=== PATIENT | male | born 1935 | race Caucasian/White ===

== ENCOUNTER 2021-11-01 09:45 | Inpatient (IN) | payer MEDICARE, OTHER ==
[~2021-11-01] VITALS: Ht 175.3 cm; Wt 57.2 kg
[2021-11-01] MEDS ORDERED: IV NS 0.9% 1,000 ML BAG IV ONE (10:00)
[2021-11-01 10:21] LABS: BASOPHILS # (AUTO) 0.1 K/uL (0.0-0.2); BASOPHILS % (AUTO) 0.8 % (0.0-2.0); EOSINOPHILS % (AUTO) 2.1 % (0.0-6.0); HEMATOCRIT 47 % (39-51); HEMOGLOBIN 14.9 g/dL (13.5-17.5); LYMPHOCYTES # (AUTO) 1.1 K/uL (0.8-4.8); LYMPHOCYTES % (AUTO) 14.2 % (20.0-44.0); MEAN CORPUSCULAR HGB CONC 32 g/dl (31.0-36.0); MEAN CORPUSCULAR VOLUME 92 fL (80-96); MONOCYTES # (AUTO) 0.6 K/uL (0.1-1.30); MONOCYTES % (AUTO) 7.1 % (2.0-12.0); NEUTROPHILS % (AUTO) 75.8 % (43.0-81.0); PLATELET COUNT (AUTO) 133 K/uL (150-450); RED BLOOD CELL COUNT(AUTO) 5.09 MIL/uL (4.5-6.0); WHITE BLOOD COUNT (AUTO) 7.9 K/uL (4.3-11.0)
--- NOTE | 2021-11-01 10:24 | NUR ---
CLINICAL CYTOGENETICS DIRECTOR AT BEDSIDE FOR XRAY
--- NOTE | 2021-11-01 10:26 | NUR ---
COVID SWAB DONE AND SENT TO LAB
--- NOTE | 2021-11-01 10:27 | NUR ---
URINE COLLECTED AND SENT TO LAB
[2021-11-01] MEDS ORDERED: ACET325T53 PO (10:30)
[2021-11-01] MEDS ORDERED: ATOR20TA PO (10:30)
[2021-11-01] MEDS ORDERED: CALC-883 PO (10:30)
[2021-11-01] MEDS ORDERED: CYAN-51 PO (10:30)
[2021-11-01] MEDS ORDERED: FERR325T23 PO (10:30)
[2021-11-01] MEDS ORDERED: MAGN400T26 PO (10:30)
[2021-11-01] MEDS ORDERED: DILT30TA14 PO (10:30)
[2021-11-01] MEDS ORDERED: VANC500V PO (10:30)
[2021-11-01] MEDS ORDERED: MULT-439 PO (10:30)
[2021-11-01] MEDS ORDERED: PANT40TA49 PO (10:31)
[2021-11-01] MEDS ORDERED: METO100T14 PO (10:31)
[2021-11-01] MEDS ORDERED: APIX2.5T PO (10:34)
[2021-11-01] MEDS ORDERED: LACT1CAP26 PO (10:34)
[2021-11-01] MEDS ORDERED: MAGN400O6 PO (10:34)
[2021-11-01 10:51] LABS: ALANINE AMINOTRANSFERASE 8 U/L (12-78); ALBUMIN 2.5 g/dL (3.4-5.0); ALKALINE PHOSPHATASE 68 U/L (46-116); ASPARTATE AMINOTRANSFERASE 23 U/L (15-37); BILIRUBIN,DIRECT 0.2 mg/dL (0.0-0.2); BILIRUBIN,TOTAL 1.2 mg/dL (0.2-1.0); CALCIUM, SERUM 8.9 mg/dL (8.5-10.1); CARBON DIOXIDE 25 mmol/L (21-32); CHLORIDE 109 mmol/L (98-107); CREATININE 1.1 mg/dL (0.6-1.3); GLUCOSE 88 mg/dL (74-106); POTASSIUM 5.4 mmol/L (3.5-5.1); SODIUM SERUM 143 mmol/L (136-145); UREA NITROGEN, BLOOD 22 mg/dL (7-18)
[2021-11-01 10:57] LABS: BILIRUBIN,URINE MODERATE (NEGATIVE); COLOR,URINE AMBER (YELLOW); LEUKOCYTE ESTERASE ,URINE MODERATE (NEGATIVE); NITRITE, URINE POSITIVE (NEGATIVE); PH,URINE 5.5 (5.0-8.0); PROTEIN,URINE >=300 mg/dl (NEGATIVE); UGLUCOSE NEGATIVE (NEGATIVE)
--- NOTE | 2021-11-01 11:14 | NUR ---
CALLED NURSING SUP FOR M/S BED. UTI
[2021-11-01 11:16] LABS: BACTERIA,URINE Few /HPF (None Seen); SQUAMOUS EPITHELIAL CELL,UR Few /HPF (None Seen); WBC,URINE TOO NUMEROUS TO COUN /HPF (0-3)
[2021-11-01] MEDS ORDERED: CEFTRIAXONE 1GM BAG (ER ONLY) 50 ML IV ONE (11:27)
[2021-11-01] MEDS ORDERED: MORPHINE SULFATE INJ 2 MG/ML DISP.SYRIN IV PRN (11:30)
[2021-11-01] MEDS ORDERED: CEFTRIAXONE 1GM BAG (ER ONLY) 1 GM/50 ML PIGGYBACK IV ONE (11:30)
[2021-11-01] MEDS ORDERED: MAGNESIUM HYDROXIDE 30 ML UDC PO PRN (11:30)
[2021-11-01] MEDS ORDERED: MAG HYDROX/AL HYDROX/SIMETH 30 ML UDC PO PRN (11:30)
[2021-11-01] MEDS ORDERED: ONDANSETRON HCL/PF 4 MG/2 ML VIAL IVP PRN (11:30)
[2021-11-01] MEDS ORDERED: Z GUARD REMEDY 4 OZ OINT TP PRN (11:30)
[2021-11-01] MEDS ORDERED: ACETAMINOPHEN 325 MG TABLET PO PRN (11:30)
[2021-11-01] MEDS ORDERED: PANTOPRAZOLE 40 MG VIAL ONE (12:56)
[2021-11-01] MEDS: IV D5/0.45 NACL 1,000 ML IV PRN ×2 (12:57→14:04)
[2021-11-01] MEDS: PANTOPRAZOLE 40 MG VIAL IV SCH (12:57)
--- NOTE | 2021-11-01 13:17 | NUR ---
REPORT GIVEN TO PATRICIA BENNETT. PT AWAITNG TRANSFER TO FLOOR.
--- NOTE | 2021-11-01 13:27 | NUR ---
TRANSFERRED TO BED 313 IN STABLE CONDITION
--- NOTE | 2021-11-01 14:00 | NUR ---
ADMISSION NOTE Received patient via gurney from ER. Report given by SABRINA Sanchez at 1313. Patient is A/O x1. On room air, breathing evenly and unlabored. No SOB or s/s of distress noted. IV access on LAC #18, IV fluid hooked, D5 1/2 NS,now running at 75 ml/hr. Patient made comfortable. Call light within reach. All belongings accounted for. VS taken and recorded as follows: BP 111/67, HR 64, RR 21, Temp 97.5, SPO2 98% on room air. Skin assessment done, multiple rashes noted and redness on groin and perianal area. Photos taken and placed in chart. Wound consult requested. Patient is DNR, POLST in chart. Code status ordered. Lungs clear on auscultation. Bowel sound present x4. Peter catheter in place, no urine output at this time. Safety precautions in place: bed in low, locked position; siderails up x 2; call light within reach. Will continue to monitor.
--- NOTE | 2021-11-01 15:45 | NUR ---
RN NOTE Received call from Ollie from lab, patient's lactic acid is 3.5. Dr. Augie Villarreal notified, no new orders at this time.
[2021-11-01 16:00] VITALS: BP 116/83
--- NOTE | 2021-11-01 18:49 | NUR ---
MS RN CLOSING NOTE Patient in bed, asleep. A/O x 1. Stable on room air, breathing evenly and unlabored. No SOB or s/s of distress noted. IV access on LAC #18 infusing D5 1/2 NS at 75 ml/hr. Peter catheter in place, no output noted. Patient kept clean and dry. Turned and repositioned, as tolerated. Safety precautions maintained: bed in low, locked position; siderails up x 2; call light within reach. Will endorsed to police shift commander nurse for ISHAN.
--- NOTE | 2021-11-01 19:30 | NUR ---
RN OPENING NOTE PATIENT IN BED, A/O X 1 ORIENTED ONLY TO NAME. PATIENT ON RA, TOLERATING WELL. NO SOB NOTED. PATIENT HAS A LAC 18 G WITH D5 1/2 NS AT 75 ML/HR ONGOING. PATIENT NOT IN ANY APPARENT DISTRESS. SAFETY MEASURES IN PLACE: BED LOCKED AND IN LOWEST POSITION, CALL LIGHT WITHIN REACH, SIDE RAILS UP. WILL MONITOR PATIENT CLOSELY.
[2021-11-01 20:00] VITALS: BP 136/58
--- NOTE | 2021-11-02 07:00 | NUR ---
MS RN OPENING NOTE PATIENT LAYING IN BED, A/O X 1, ORIENTED ONLY TO NAME, TOLERATING WELL ON ROOM AIR WITH NO S/S RESPIRATORY DISTRESS. L AC # 18 IV WITH D5 1/2 NS INFUSING @ 75 ML/HR. SCHOFIELD CATHETER IN PLACE DRAINING CLEAR YELLOW URINE TO GRAVITY. SAFETY MEASURES IN PLACE: BED LOCKED AND IN LOWEST POSITION, CALL LIGHT WITHIN REACH, SIDE RAILS UP. WILL CONTINUE TO MONITOR.
--- NOTE | 2021-11-02 07:06 | NUR ---
RN CLOSING NOTE PATIENT IN BED, A/O X 1 ORIENTED ONLY TO NAME. PATIENT ON RA, TOLERATING WELL. NO SOB NOTED. PATIENT HAS A LAC 18 G WITH D5 1/2 NS AT 75 ML/HR ONGOING. PATIENT NOT IN ANY APPARENT DISTRESS. PATIENT REFUSED BLOOD DRAW AT THIS TIME, FIRE OFFICER WILL COME BACK AT A LATER TIME. SAFETY MEASURES IN PLACE: BED LOCKED AND IN LOWEST POSITION, CALL LIGHT WITHIN REACH, SIDE RAILS UP. ALL NEEDS MET AND ATTENDED. ALL ORDERS CARRIED OUT. WILL ENDORSE TO DAY SHIFT NURSE FOR ISHAN.
[2021-11-02] MEDS: PANTOPRAZOLE 40 MG VIAL IV SCH (08:47)
[2021-11-02 08:52] LABS: BASOPHILS # (AUTO) 0.1 K/uL (0.0-0.2); BASOPHILS % (AUTO) 1.9 % (0.0-2.0); EOSINOPHILS % (AUTO) 2.8 % (0.0-6.0); HEMATOCRIT 43 % (39-51); HEMOGLOBIN 13.5 g/dL (13.5-17.5); LYMPHOCYTES # (AUTO) 1.1 K/uL (0.8-4.8); LYMPHOCYTES % (AUTO) 15.6 % (20.0-44.0); MEAN CORPUSCULAR HGB CONC 32 g/dl (31.0-36.0); MEAN CORPUSCULAR VOLUME 92 fL (80-96); MONOCYTES # (AUTO) 0.6 K/uL (0.1-1.30); MONOCYTES % (AUTO) 7.7 % (2.0-12.0); NEUTROPHILS # (AUTO) 5.2 K/uL (1.8-8.9); PLATELET COUNT (AUTO) 113 K/uL (150-450); RED BLOOD CELL COUNT(AUTO) 4.64 MIL/uL (4.5-6.0); WHITE BLOOD COUNT (AUTO) 7.2 K/uL (4.3-11.0)
[2021-11-02 09:30] LABS: CALCIUM, SERUM 9.1 mg/dL (8.5-10.1); CREATININE 1.2 mg/dL (0.6-1.3); MAGNESIUM 1.7 mg/dL (1.8-2.4); PHOSPHORUS 4.3 mg/dL (2.5-4.9); POTASSIUM 5.9 mmol/L (3.5-5.1)
[2021-11-02] MEDS ORDERED: ALBUTEROL FS 2.5 MG/3 ML VIAL.NEB NEB ONE ×2 (10:30→16:45)
[2021-11-02] MEDS: SODIUM POLYSTYRENE SULFONATE 15 G/60 ML BOTTLE PO ONE ×2 (11:01→11:23)
[2021-11-02] MEDS: CEFTRIAXONE 1 G in IV D5W 50 ML IV SCH (12:11)
[2021-11-02] MEDS ORDERED: MAGNESIUM HYDROXIDE 30 ML UDC PO PRN (13:30)
[2021-11-02] MEDS ORDERED: ACETAMINOPHEN 325 MG TABLET PO PRN (13:30)
[2021-11-02] MEDS: FERROUS SULFATE (325 MG) 325 MG/TAB TABLET PO SCH (17:17)
[2021-11-02] MEDS: APIXABAN 2.5 MG TABLET PO SCH (17:19)
[2021-11-02] MEDS: DILTIAZEM HCL 30 MG TABLET PO SCH (17:32)
[2021-11-02 20:00] VITALS: BP 119/61
--- NOTE | 2021-11-02 20:47 | NUR ---
MS RN OPENING NOTE; RECEIVED PATIENT IN BED, AA/O X 1 CONFUSED,TOLERATING WELL ON ROOM AIR WITH NO SIGN SOB/ RESPIRATORY DISTRESS NOTED. L AC # 18 IV WITH D5 1/2 NS INFUSING @ 75 ML/HR. SCHOFIELD CATHETER IN PLACE DRAINING CLEAR YELLOW URINE TO GRAVITY. SAFETY MEASURES IN PLACE: BED LOCKED AND IN LOWEST POSITION, CALL LIGHT WITHIN REACH, SIDE RAILS UP. WILL CONTINUE TO MONITOR.
[2021-11-02] MEDS: ATORVASTATIN 10 MG TABLET PO SCH (21:32)
[2021-11-02] MEDS: METOPROLOL TARTRATE 50 MG TABLET PO SCH (21:34)
[2021-11-02] MEDS ORDERED: PANTOPRAZOLE 40 MG TABLET.DR PO SCH (22:00)
[2021-11-03] MEDS: DILTIAZEM HCL 30 MG TABLET PO SCH ×5 (00:51→23:48)
[2021-11-03] MEDS: IV D5/0.45 NACL 1,000 ML IV PRN (01:53)
--- NOTE | 2021-11-03 06:40 | NUR ---
MS RN CLOSING NOTE; PATIENT IN BED, AA/O X 1 CONFUSED,TOLERATING WELL ON ROOM AIR WITH NO SIGN SOB/ RESPIRATORY DISTRESS NOTED.DUE MEDS GIVEN ORDER,ALL NEEDS ATTENDED, L AC # 18G WITH D5 1/2 NS INFUSING @ 75 ML/HR. SCHOFIELD CATHETER IN PLACE DRAINING CLEAR YELLOW URINE OUTPUT 750ML.SAFETY MEASURES IN PLACE: BED LOCKED AND IN LOWEST POSITION, CALL LIGHT WITHIN REACH, SIDE RAILS UP. WILL ENDORSED TO NEXT SHIFT.
--- NOTE | 2021-11-03 07:19 | NUR ---
MS RN OPENING NOTE RECEIVED PATIENT IN BED, A/O X 1 CONFUSED,TOLERATING WELL ON ROOM AIR WITH NO SIGN SOB/ RESPIRATORY DISTRESS NOTED. L AC # 18 IV WITH D5 1/2 NS INFUSING @ 75 ML/HR. SCHOFIELD CATHETER IN PLACE DRAINING CLEAR YELLOW URINE TO GRAVITY. SAFETY MEASURES IN PLACE: BED LOCKED AND IN LOWEST POSITION, CALL LIGHT WITHIN REACH, SIDE RAILS UP. WILL CONTINUE TO MONITOR.
[2021-11-03 07:55] LABS: CALCIUM, SERUM 8.3 mg/dL (8.5-10.1); POTASSIUM 4.4 mmol/L (3.5-5.1)
[2021-11-03] MEDS ORDERED: PANTOPRAZOLE 40 MG TABLET.DR PO SCH (08:33)
[2021-11-03] MEDS ORDERED: ENOXAPARIN SODIUM 30 MG/0.3 ML DISP.SYRIN SQ SCH (09:00)
[2021-11-03] MEDS ORDERED: ACIDOPHILUS/BULGARICUS 1 EACH GRAN.PACK PO SCH (09:00)
[2021-11-03] MEDS: MAGNESIUM OXIDE 400 MG TABLET PO SCH (09:51)
[2021-11-03] MEDS: CYANOCOBALAMIN 500 MCG TABLET PO SCH (09:52)
[2021-11-03] MEDS: CALCIUM CARB 600MG /VIT D 1 EACH TABLET PO SCH (09:52)
[2021-11-03] MEDS: PANTOPRAZOLE 40 MG TABLET.DR PO SCH (09:52)
[2021-11-03] MEDS: FERROUS SULFATE (325 MG) 325 MG/TAB TABLET PO SCH ×2 (09:52→17:23)
[2021-11-03] MEDS: MULTIVITAMIN/LUTEIN/MINERALS 1 TAB PO SCH (09:52)
[2021-11-03] MEDS: METOPROLOL TARTRATE 50 MG TABLET PO SCH ×2 (09:53→21:33)
[2021-11-03] MEDS: APIXABAN 2.5 MG TABLET PO SCH ×2 (09:54→17:25)
[2021-11-03 10:12] VITALS: BP 113/72
--- NOTE | 2021-11-03 10:30 | NUR ---
MS RN NOTE SEEN BY DR. PALOMARES
--- NOTE | 2021-11-03 11:02 | NUR ---
MS RN NOTE PATIENT WITH LACTINEX ORDER. VERIFIED WITH PHARMACIST BECAUSE IT IS NOT SHOWING UP IN THE [facility]. PER PHARMACIST, WILL CHECK AND CAN RECHECK AGAIN AFTER A WHILE. LACTINEX PULLED OUT FROM MACHINE. HOWEVER, LACTINEX MOVED FOR TOMORROW. MEDICATION HALF OPENED. MEDICATION DISCARDED INSTEAD.
[2021-11-03] MEDS: CEFTRIAXONE 1 G in IV D5W 50 ML IV SCH (13:26)
[2021-11-03] MEDS: ENSURE ENLIVE 237 ML LIQUID (VANILLA) PO SCH (17:26)
[2021-11-03 18:09] VITALS: BP 135/95
--- NOTE | 2021-11-03 19:00 | NUR ---
MS RN CLOSING NOTE PATIENT IN BED, A/O X 1 CONFUSED,TOLERATING WELL ON ROOM AIR WITH NO SIGN SOB/ RESPIRATORY DISTRESS NOTED. RIGHT FOREARM # 22 IV WITH D5 1/2 NS INFUSING @ 75 ML/HR. SCHOFIELD CATHETER IN PLACE DRAINING CLEAR YELLOW URINE TO GRAVITY. SAFETY MEASURES IN PLACE: BED LOCKED AND IN LOWEST POSITION, CALL LIGHT WITHIN REACH, SIDE RAILS UP. ENDORSED TO NEXT SHIFT FOR CONTINUITY OF CARE.
--- NOTE | 2021-11-03 19:43 | NUR ---
MS RN OPENING NOTE; RECEIVED PATIENT IN BED, AA/O X 1 CONFUSED,TOLERATING WELL ON ROOM AIR WITH NO SIGN SOB/ RESPIRATORY DISTRESS NOTED. R AC 22G WITH D5 1/2 NS INFUSING @ 75 ML/HR. SCHOFIELD CATHETER IN PLACE DRAINING CLEAR YELLOW URINE TO GRAVITY. SAFETY MEASURES IN PLACE: BED LOCKED AND IN LOWEST POSITION, CALL LIGHT WITHIN REACH, SIDE RAILS UP. WILL CONTINUE TO MONITOR.
[2021-11-03 20:00] VITALS: BP 109/78
[2021-11-03] MEDS: ATORVASTATIN 10 MG TABLET PO SCH (21:32)
[2021-11-04] VITALS: BP 117/82
[2021-11-04] MEDS: IV D5/0.45 NACL 1,000 ML IV PRN ×2 (02:51→20:00)
[2021-11-04] MEDS: DILTIAZEM HCL 30 MG TABLET PO SCH ×3 (05:49→17:21)
--- NOTE | 2021-11-04 06:30 | NUR ---
MS RN CLOSING NOTE; PATIENT IN BED, AA/O X 1 CONFUSED,TOLERATING WELL ON ROOM AIR WITH NO SIGN SOB/ RESPIRATORY DISTRESS NOTED.DUE MEDS GIVEN ORDER,ALL NEEDS ATTENDED, IV ACCESS ON RFA 22G WITH D5 1/2 NS INFUSING @ 75 ML/HR. SCHOFIELD CATHETER IN PLACE DRAINING CLEAR YELLOW URINE OUTPUT 200ML.SAFETY MEASURES IN PLACE: BED LOCKED AND IN LOWEST POSITION, CALL LIGHT WITHIN REACH, SIDE RAILS UP. WILL ENDORSED TO NEXT SHIFT.
[2021-11-04 07:03] LABS: BASOPHILS # (AUTO) 0.1 K/uL (0.0-0.2); BASOPHILS % (AUTO) 0.7 % (0.0-2.0); EOSINOPHILS % (AUTO) 4.4 % (0.0-6.0); HEMATOCRIT 41 % (39-51); HEMOGLOBIN 13.2 g/dL (13.5-17.5); LYMPHOCYTES # (AUTO) 0.7 K/uL (0.8-4.8); LYMPHOCYTES % (AUTO) 9.3 % (20.0-44.0); MEAN CORPUSCULAR HGB CONC 33 g/dl (31.0-36.0); MEAN CORPUSCULAR VOLUME 91 fL (80-96); MONOCYTES # (AUTO) 0.4 K/uL (0.1-1.30); MONOCYTES % (AUTO) 5.7 % (2.0-12.0); NEUTROPHILS # (AUTO) 5.8 K/uL (1.8-8.9); NEUTROPHILS % (AUTO) 79.9 % (43.0-81.0); PLATELET COUNT (AUTO) 109 K/uL (150-450); RED BLOOD CELL COUNT(AUTO) 4.48 MIL/uL (4.5-6.0); WHITE BLOOD COUNT (AUTO) 7.3 K/uL (4.3-11.0)
[2021-11-04 07:12] LABS: CALCIUM, SERUM 7.9 mg/dL (8.5-10.1); CARBON DIOXIDE 26 mmol/L (21-32); CHLORIDE 108 mmol/L (98-107); CREATININE 0.9 mg/dL (0.6-1.3); GLUCOSE 129 mg/dL (74-106); POTASSIUM 3.8 mmol/L (3.5-5.1); SODIUM SERUM 142 mmol/L (136-145); UREA NITROGEN, BLOOD 18 mg/dL (7-18)
--- NOTE | 2021-11-04 07:30 | NUR ---
MS RN OPENING NOTE; RECEIVED PATIENT AWAKE IN BED, PATIENT IS A/O X 1 WITH CONFUSION. ON ROOM AIR WITH NO SIGN SOB/ RESPIRATORY DISTRESS NOTED. IV ACCESS ON RFA 22G WITH D5 1/2 NS INFUSING @ 75 ML/HR. SCHOFIELD CATHETER IN PLACE DRAINING CLEAR YELLOW URINE . ALL SAFETY MEASURES IN PLACE: BED LOCKED AND IN LOWEST POSITION, CALL LIGHT AND TABLE WITHIN REACH, SIDE RAILS UP TIMES 2. WILL CONTINUE TO MONITOR.
[2021-11-04 08:00] VITALS: BP 111/79
[2021-11-04] MEDS: CALCIUM CARB 600MG /VIT D 1 EACH TABLET PO SCH (08:59)
[2021-11-04] MEDS: ENSURE ENLIVE 237 ML LIQUID (VANILLA) PO SCH ×2 (08:59→17:20)
[2021-11-04] MEDS: ACIDOPHILUS/BULGARICUS 1 EACH TAB.CHEW PO SCH (09:00)
[2021-11-04] MEDS: METOPROLOL TARTRATE 50 MG TABLET PO SCH ×2 (09:01→21:00)
[2021-11-04] MEDS: APIXABAN 2.5 MG TABLET PO SCH ×2 (09:02→17:22)
[2021-11-04] MEDS: MAGNESIUM OXIDE 400 MG TABLET PO SCH (09:03)
[2021-11-04] MEDS: FERROUS SULFATE (325 MG) 325 MG/TAB TABLET PO SCH ×2 (09:03→17:20)
[2021-11-04] MEDS: MULTIVITAMIN/LUTEIN/MINERALS 1 TAB PO SCH (09:03)
[2021-11-04] MEDS: CYANOCOBALAMIN 500 MCG TABLET PO SCH (09:04)
[2021-11-04] MEDS: PANTOPRAZOLE 40 MG TABLET.DR PO SCH (09:04)
--- NOTE | 2021-11-04 09:06 | NUR ---
WOUND CARE CONSULT: PT PRESENTS WITH SPOTTY RASH TO UPPER BODY, UNKNOWN ETIOLOGY, RED RASH TO PERINEUM, GROIN FOLDS, BUTTOCKS WITH OPEN AREA TO SACRUM, ALL PRESENT ON ADMISSION. DEFER TO PMD FOR UPPER BODY RASH/SKIN CONDITION. RECOMMENDATIONS MADE FOR SKIN PROTECTION AND CARE OF GROIN/BUTTOCKS/PERINEAL RASH. DISCUSSED WITH NURSING STAFF. DR CRONIN CALLED FOR SURGICAL CONSULT. PT TO BE PLACED ON [facility] ISOFLEX LOW AIRSS BED. IN AGREEMENT WITH PLAN OF CARE. Addendum: 11/04/21 at 0908 by BUD FREY WNDNU Amended: Links added.
[2021-11-04] MEDS: CLOTRIMAZOLE/BETAMETASONE DIPROPIONATE 15 GM TUBE TP SCH ×2 (11:48→17:23)
[2021-11-04] MEDS: CEFTRIAXONE 1 G in IV D5W 50 ML IV SCH (12:11)
[2021-11-04 17:23] VITALS: BP 106/66
--- NOTE | 2021-11-04 18:49 | NUR ---
MS RN CLOSING NOTE; RECEIVED PATIENT AWAKE IN BED, PATIENT IS A/O X 1 WITH CONFUSION. ON ROOM AIR WITH NO SIGN SOB/ RESPIRATORY DISTRESS NOTED. IV ACCESS ON RFA 22G WITH D5 1/2 NS INFUSING @ 75 ML/HR. SCHOFIELD CATHETER IN PLACE DRAINING CLEAR YELLOW URINE . ALL SAFETY MEASURES IN PLACE: BED LOCKED AND IN LOWEST POSITION, CALL LIGHT AND TABLE WITHIN REACH, SIDE RAILS UP TIMES 2. ALL DUE MEDS GIVEN ORDERED.WILL ENDORSE FOR ISHAN
--- NOTE | 2021-11-04 19:54 | NUR ---
RN OPENING NOTES RECEIVED PT IN BED, AWAKE. AOx2, ABLE TO MAKE NEEDS KNOWN. ON RA AND TOLERATING WELL. NO SOB NOTED. NO S/SX OF RESPIRATORY DISTRESS NOTED. IV ACCESS IN RFA #22G RUNNING D51/2 NS @ 75 ML/HR. SAFETY PRECAUTIONS IN PLACE: BED IN LOWEST, LOCKED POSITION, SIDERAILS UPx2, AND BRAKES ON. TABLE AND CALL LIGHT WITHIN REACH. ALL NEEDS MET AT THIS TIME.
[2021-11-04 20:00] VITALS: BP 98/71
[2021-11-04] MEDS: ATORVASTATIN 10 MG TABLET PO SCH (21:43)
[2021-11-05] MEDS: DILTIAZEM HCL 30 MG TABLET PO SCH ×3 (00:16→12:21)
[2021-11-05 06:39] LABS: BASOPHILS % (AUTO) 0.5 % (0.0-2.0); EOSINOPHILS % (AUTO) 5.5 % (0.0-6.0); HEMATOCRIT 39 % (39-51); HEMOGLOBIN 12.6 g/dL (13.5-17.5); LYMPHOCYTES # (AUTO) 0.7 K/uL (0.8-4.8); LYMPHOCYTES % (AUTO) 12.6 % (20.0-44.0); MEAN CORPUSCULAR HGB CONC 32 g/dl (31.0-36.0); MEAN CORPUSCULAR VOLUME 90 fL (80-96); MONOCYTES # (AUTO) 0.4 K/uL (0.1-1.30); MONOCYTES % (AUTO) 6.6 % (2.0-12.0); NEUTROPHILS # (AUTO) 4.1 K/uL (1.8-8.9); NEUTROPHILS % (AUTO) 74.8 % (43.0-81.0); PLATELET COUNT (AUTO) 100 K/uL (150-450); RED BLOOD CELL COUNT(AUTO) 4.29 MIL/uL (4.5-6.0); WHITE BLOOD COUNT (AUTO) 5.5 K/uL (4.3-11.0)
--- NOTE | 2021-11-05 06:54 | NUR ---
RN CLOSING NOTES PT IN BED, ASLEEP, AWAKENS TO VERBAL STIMULI AOx2, ABLE TO MAKE NEEDS KNOWN. ON RA AND TOLERATING WELL. NO SOB NOTED. NO S/SX OF RESPIRATORY DISTRESS NOTED. IV ACCESS IN RFA #22G RUNNING D51/2 NS @ 75 ML/HR. ALL ORDERS CARRIED OUT. ALL NEEDS MET. PT KEPT CLEAN AND DRY. SAFETY PRECAUTIONS IN PLACE: BED IN LOWEST, LOCKED POSITION, SIDERAILS UPx2, AND BRAKES ON. TABLE AND CALL LIGHT WITHIN REACH. WILL ENDORSE TO ONCOMING SHIFT FOR ISHAN.
[2021-11-05 06:58] LABS: CALCIUM, SERUM 7.9 mg/dL (8.5-10.1); CREATININE 0.8 mg/dL (0.6-1.3); POTASSIUM 3.3 mmol/L (3.5-5.1)
[2021-11-05] MEDS: IV D5/0.45 NACL 1,000 ML IV PRN (07:00)
--- NOTE | 2021-11-05 07:47 | NUR ---
MS RN OPENING NOTE Patient in bed, asleep. A/O x 2, pleasantly confused per night patrol inspector report. On room air, breathing evenly and unlabored. No SOB or s/s of distress noted. IV access on RFA #22 infusing D5 1/2 NS at 75 ml/hr. Epter catheter in place draining to an mamadou colored urine. Safety precautions in place: bed in low, locked position; siderailsup x 2; call light within reach. Will continue to monitor.
[2021-11-05 08:00] VITALS: BP 91/63
[2021-11-05] MEDS: FERROUS SULFATE (325 MG) 325 MG/TAB TABLET PO SCH ×2 (09:00→09:03)
[2021-11-05] MEDS: CALCIUM CARB 600MG /VIT D 1 EACH TABLET PO SCH ×2 (09:00→09:02)
[2021-11-05] MEDS: CYANOCOBALAMIN 500 MCG TABLET PO SCH ×2 (09:00→09:02)
[2021-11-05] MEDS: MAGNESIUM OXIDE 400 MG TABLET PO SCH ×2 (09:00→09:02)
[2021-11-05] MEDS: MULTIVITAMIN/LUTEIN/MINERALS 1 TAB PO SCH ×2 (09:00→09:02)
[2021-11-05] MEDS: ACIDOPHILUS/BULGARICUS 1 EACH TAB.CHEW PO SCH ×2 (09:00→09:02)
[2021-11-05] MEDS: PANTOPRAZOLE 40 MG TABLET.DR PO SCH ×2 (09:00→09:02)
[2021-11-05] MEDS: METOPROLOL TARTRATE 50 MG TABLET PO SCH (09:00)
[2021-11-05] MEDS: ENSURE ENLIVE 237 ML LIQUID (VANILLA) PO SCH (09:03)
[2021-11-05] MEDS: CLOTRIMAZOLE/BETAMETASONE DIPROPIONATE 15 GM TUBE TP SCH (09:03)
[2021-11-05] MEDS: APIXABAN 2.5 MG TABLET PO SCH (09:05)
[2021-11-05] MEDS ORDERED: POTASSIUM CHLORIDE 20 MEQ POWDER PACKET PO SCH (10:00)
[2021-11-05] MEDS ORDERED: LEVO500T90 PO (10:25)
[2021-11-05] MEDS: POTASSIUM CL. PREMIX PERIPHER. 50 ML IV SCH ×2 (11:12→12:21)
[2021-11-05 12:21] VITALS: BP 104/73
[2021-11-05] MEDS: CEFTRIAXONE 1 G in IV D5W 50 ML IV SCH (13:26)
--- NOTE | 2021-11-05 16:10 | NUR ---
DISCHARGE NOTE Received order for discharge. Patient is A/O x 1, confused. Stable on room air, breathing evenly and unlabored. No SOB or s/s of distress noted. Report given to Kaylee of [facility]. Patient denies any pain or discomfort at this time. Peter catheter left in place, SNF aware; drained 150 cc of mamadou colored urine. Photos of groin and sacrum taken an placed in chart. All belongings accounted for, belonging sheet signed by 2 RNs, patient unable to sign. IV access removed, catheter tip intact. Pressure dressing applied, no signs of bleeding noted. ID band removed. Exitcare folder given to EMT. Patient left in stable condition with 3 retail analytics manager present via ambulance.
== END 2021-11-05 17:04 | DRG 871 ==
LOC: ER 09:54 → TRANSITION 12:59 → MED 13:17
PROVIDERS: ADMIT Nurse Practitioner Acute Care; ATTEND Internal Medicine
DX: A41.9 Sepsis, unspecified organism (principal); E43 Unspecified severe protein-calorie malnutrition; G93.41 Metabolic encephalopathy; N17.0 Acute kidney failure with tubular necrosis; R65.21 Severe sepsis with septic shock; N39.0 Urinary tract infection, site not specified; J98.11 Atelectasis; J90 Pleural effusion, not elsewhere classified; R64 Cachexia; D68.59 Other primary thrombophilia; I48.20 Chronic atrial fibrillation, unspecified; Z68.1 Body mass index [BMI] 19.9 or less, adult; D69.6 Thrombocytopenia, unspecified; E86.0 Dehydration; Z20.822 Contact with and (suspected) exposure to COVID-19; Z66 Do not resuscitate; Z51.5 Encounter for palliative care; K21.9 Gastro-esophageal reflux disease without esophagitis; E78.5 Hyperlipidemia, unspecified; Z86.718 Personal history of other venous thrombosis and embolism; Z86.711 Personal history of pulmonary embolism; Z88.8 Allergy status to other drugs, medicaments and biological substances; Z79.01 Long term (current) use of anticoagulants; Z79.899 Other long term (current) drug therapy; L30.4 Erythema intertrigo; L89.156 Pressure-induced deep tissue damage of sacral region; Z74.09 Other reduced mobility; E87.5 Hyperkalemia; E88.09 Other disorders of plasma-protein metabolism, not elsewhere classified; F03.90 Unspecified dementia, unspecified severity, without behavioral disturbance, psychotic disturbance, mood disturbance, and anxiety; R62.7 Adult failure to thrive; F09 Unspecified mental disorder due to known physiological condition; I10 Essential (primary) hypertension; B96.5 Pseudomonas (aeruginosa) (mallei) (pseudomallei) as the cause of diseases classified elsewhere
CPT/HCPCS: 36415; 71045-TC; 71250-TC; 80048-TC; 80076-TC; 81001; 83605-TC; 83735-TC; 84100-TC; 84484-TC; 85025-TC; 85730-TC; 87040-TC; 87081-TC; 87086-TC; 87186-TC; 92526; 92611-TC; 93970-TC; C9113; C9803; G0378; J0696; J3480; J3490; J7030; J7050; J7060